=== PATIENT | male | born 1955 | race Caucasian/White ===

== ENCOUNTER 2023-11-26 08:15 | Outpatient (CLI) | payer MEDICARE | END 2023-11-26 08:16 | disposition home or self-care (01) | LOC: CT 08:15 | PROVIDERS: ATTEND Internal Medicine Cardiovascular Disease | DX: I71.21 Aneurysm of the ascending aorta, without rupture (principal); J47.9 Bronchiectasis, uncomplicated; K44.9 Diaphragmatic hernia without obstruction or gangrene; K76.89 Other specified diseases of liver; J98.4 Other disorders of lung; R91.1 Solitary pulmonary nodule | CPT/HCPCS: 71275; 82565 ==